=== PATIENT | female | born 1965 | race Caucasian/White ===

== ENCOUNTER 2023-05-31 07:32 | Emergency (ER) | payer BC, SELFPAY ==
[2023-05-31] VITALS (20 sets, daily range): BP systolic 134–164; BP diastolic 86–98; PULSE 86–109; RESP 16; TEMP 36.2; O2SAT 93–97; BMI 26.6
--- NOTE | 2023-05-31 07:59 | CRLHL7_ITS ---
For Patients: As a result of the Century Cures Act, medical imaging exams and procedure reports are released immediately into your electronic medical record. You may view this report before your referring provider. If you have questions, please contact your health care provider. INDICATION: Right lower quadrant pain. COMPARISON: 05/15/2020. TECHNIQUE: CT of the abdomen and pelvis with IV contrast. 81 cc of Isovue-370 administered intravenously. FINDINGS: Normal appendix. Colonic diverticulosis. No evidence of colonic diverticulitis. No bowel obstruction. Urinary bladder is incompletely distended. The uterus and adnexa appear unremarkable. Limited examination of the lung bases reveal no new focal or diffuse pulmonary opacities. No pleural effusion. The liver, spleen and pancreas appear unremarkable. Borderline distention of the gallbladder, new from previous. No intra or extrahepatic biliary ductal dilatation. No free intraperitoneal air or fluid. The kidneys enhance symmetrically without hydronephrosis. Minimal anterolisthesis of L4 on L5. Multilevel degenerative change. Vertebral body heights are well maintained. IMPRESSION: 1. Normal appendix. 2. Colonic diverticulosis but no evidence of diverticulitis. 3. Borderline distention of the gallbladder, new. Further evaluation could be obtained as clinically warranted with an ultrasound. Please note that all CT scans at this facility use dose modulation, iterative reconstruction, and/or weight-based dosing when appropriate to reduce radiation dose to as low as reasonably achievable. Dictated by Sy Warner MD @ 05/31/2023 10:59:59 AM (Electronically Signed)
--- NOTE | 2023-05-31 08:02 | ED_ITS ---
HPI - General Adult General Time Seen by Provider: 08:02 Date Seen: 05/31/23 Chief complaint: Abdominal Pain Stated complaint: Diverticulitis flare up/ETOH Time Seen by Provider: 05/31/23 07:53 Source: patient Mode of arrival: ambulatory Limitations: no limitations History of Present Illness HPI narrative: Patient is a 57-year-old female with his history of diverticulitis and history of alcoholism, she went on a 4 day alcohol binge recently and has persistent abdominal pain in the right side. She still has her gallbladder, she denies any marked fevers rigors or chills, denies dysuria. Patient has been through a in the past and plans and pursuing that again. She has had some nausea. She has had no blood in her stool or blood in her vomit. She has had no chest pain or breathing problem. Related Data Previous Rx's Medication Instructions Recorded hydrocodone 7.5 mg-acetaminophen 1 tab PO Q8H PRN pain #10 tabs 05/31/23 325 mg tablet Allergies Allergy/AdvReac Type Severity Reaction Status Date / Time No Known Drug Allergies Allergy Verified 05/31/23 08:26 Review of Systems Status of ROS: Reports: 6 or more systems reviewed and unremarkable except as noted in History and below [facility] Medical History H/O ETOH abuse ?F10.11 - Alcohol abuse, in remission (ICD-10) Pancreatitis ?K85.90 - Acute pancreatitis without necrosis or infection, unspecified (ICD- 10) Diverticulitis ?K57.92 - Diverticulitis of intestine, part unspecified, without perforation or abscess without bleeding (ICD-10) Social History Smoking Status: Never smoker Do you use any of these nicotine containing products: None How often do you have a drink containing alcohol: monthly or less AUDIT-C Alcohol total score: 1 Non-prescribed substance use: marijuana (any form) Exam Narrative: Exam Narrative: Objective: Vital signs show elevated blood pressure, afebrile In general no apparent distress HEENT unremarkable Chest clear Heart regular Abdomen benign soft bowel sounds normoactive, patient has some mild right-sided abdominal tenderness to palpation no palpable mass. No rebound Extremities are no edema Neurologic nonfocal Const: Vital Signs, click to edit/add: Vital Signs - 24 hr 05/31/23 07:35 05/31/23 07:59 05/31/23 08:43 Temperature 97.2 F L Pulse Rate 86 Pulse Rate [Right Pulse Oximeter] 109 H Respiratory Rate 16 Blood Pressure Blood Pressure [Ri ght Upper Arm] 164/96 H Pulse Oximetry 96 96 95 Oxygen Delivery Me thod Room Air Room Air 05/31/23 08:45 05/31/23 09:00 05/31/23 09:01 Temperature Pulse Rate 88 92 89 Pulse Rate [Right Pulse Oximeter] Respiratory Rate Blood Pressure 138/90 H Blood Pressure [Ri ght Upper Arm] Pulse Oximetry 93 93 94 Oxygen Delivery Me thod 05/31/23 09:15 05/31/23 09:30 05/31/23 09:32 Temperature Pulse Rate 93 88 91 Pulse Rate [Right Pulse Oximeter] Respiratory Rate Blood Pressure 144/93 H Blood Pressure [Ri ght Upper Arm] Pulse Oximetry 93 94 94 Oxygen Delivery Me thod 05/31/23 09:33 05/31/23 09:45 05/31/23 10:00 Temperature Pulse Rate 88 91 93 Pulse Rate [Right Pulse Oximeter] Respiratory Rate Blood Pressure Blood Pressure [Ri ght Upper Arm] Pulse Oximetry 95 96 95 Oxygen Delivery Me thod Room Air 05/31/23 10:02 05/31/23 10:15 05/31/23 10:30 Temperature Pulse Rate 90 95 97 Pulse Rate [Right Pulse Oximeter] Respiratory Rate Blood Pressure 141/91 H Blood Pressure [Ri ght Upper Arm] Pulse Oximetry 96 95 94 Oxygen Delivery Me thod 05/31/23 10:32 05/31/23 10:45 05/31/23 11:00 Temperature Pulse Rate 97 92 99 Pulse Rate [Right Pulse Oximeter] Respiratory Rate Blood Pressure 134/86 Blood Pressure [Ri ght Upper Arm] Pulse Oximetry 93 95 96 Oxygen Delivery Me thod 05/31/23 11:01 05/31/23 11:15 Temperature Pulse Rate 98 93 Pulse Rate [Right Pulse Oximeter] Respiratory Rate Blood Pressure 152/98 H Blood Pressure [Ri ght Upper Arm] Pulse Oximetry 95 97 Oxygen Delivery Me thod Course Vital Signs Vital signs: Initial Vital Signs Temperature 97.2 F L 05/31/23 07:35 Temperature Source Temporal Artery Scan 05/31/23 07:35 Pulse Rate 109 H 05/31/23 07:35 Respiratory Rate 16 05/31/23 07:35 Blood Pressure 164/96 H 05/31/23 07:35 Blood Pressure Mean 118 H 05/31/23 07:35 Blood Pressure Position Sitting 05/31/23 07:35 Pulse Oximetry 96 05/31/23 07:35 Oxygen Delivery Method Room Air 05/31/23 07:35 Vital Signs Temperature 97.2 F L 05/31/23 07:35 Pulse Rate 109 H 05/31/23 07:35 Respiratory Rate 16 05/31/23 07:35 Blood Pressure 164/96 H 05/31/23 07:35 Pulse Oximetry 96 05/31/23 07:35 Oxygen Delivery Method Room Air 05/31/23 07:35 Temperature 97.2 F L 05/31/23 07:35 Pulse Rate 93 05/31/23 11:15 Respiratory Rate 16 05/31/23 07:35 Blood Pressure 152/98 H 05/31/23 11:01 Pulse Oximetry 97 05/31/23 11:15 Oxygen Delivery Method Room Air 05/31/23 09:33 Medical Decision Making MDM Narrative Medical decision making narrative: [age] year white female with the recent history of alcohol binge as well as history of diverticulitis with right sided abdominal pain, rule out diverticulitis will rule out colitis, rule out intra-abdominal infection patient will get CT scan with IV contrast, labs, fluids, pain medicine. Patient will be followed in the ER for period of time disposition pending findings above. Patient feels her pain is gone from a 7 down to a 5, her blood counts and CT scan look largely unremarkable. She does have just mildly distended gallb ladder, but no obvious stones noted. She has a negative CRP. I think at this point to be reasonable to try and treat her with pain medication will give her [place] for home as needed, light activity, low-fat diet, recheck with regular doctor in the next couple of days, she has problems or concerns sooner should return to the ED for ultrasound of right upper quadrant and reassessment. She was comfortable this will follow up as directed. Lab Data Labs: Lab Results 05/31/23 Range/Units 08:15 WBC 9.91 (4.50-11.00) K/uL RBC 5.05 (4.00-5.20) m/uL Hgb 14.9 (12.0-16.0) gm/dL Hct 43.5 (33.0-51.0) % MCV 86 (80-100) fL MCH 30 (26-34) pg MCHC 34 (32-36) gm/dL RDW Coeff of [place] 12.0 (11.5-15.5) % Plt Count 372 (140-440) K/uL Neut % (Auto) 74.5 H (42.0-72.0) % Lymph % (Auto) 16.5 L (20-44) % [place] % (Auto) 7.7 (0.0-11.0) % Eos % (Auto) 0.6 (0.0-7.0) % Baso % (Auto) 0.5 (0.0-3.0) % Neut # (Auto) 7.40 H (1.7-7.0) K/uL Lymph # (Auto) 1.60 (0.90-2.90) K/uL [place] # (Auto) 0.80 (0.00-0.90) K/UL Eos # (Auto) 0.06 (0.00-0.50) K/uL Baso # (Auto) 0.05 (0.00-0.30) K/uL Abs Immat Gran (auto) 0.02 (0.00-0.30) K/uL Imm/Tot Granulo (auto) 0.2 % Sodium 138 (135-149) mmol/L Potassium 4.1 (3.6-5.1) mmol/L Chloride 101 (96-114) mmol/L Carbon Dioxide 25 (20-32) mmol/L Anion Gap 12 (7-15) mEq/L BUN 16 (7-30) mg/dL Creatinine 0.7 (0.5-1.5) mg/dL Estimated Creat Clear 81.01 Estimated GFR 100 ml/min Glucose 93 (60-115) mg/dL Lactate 3.2 H (0.5-1.9) mmol/L Calcium 9.3 (8.4-10.6) mg/dL C-Reactive Protein < 0.5 L (0.5-1.0) mg/dL Amylase 51 (18-89) U/L Discharge Plan Discharge Clinical Impression: Abdominal pain Patient Disposition: Home w/ Parent or Adult Condition: Improved Additional Instructions: Light diet, low-fat diet, pain medicine as needed, follow up with regular doctor next couple of days. Consider an ultrasound of your gallbladder if it continues to hurt. Return to the ED at any time here concerning questions. Activity Level: Light activity Discharge Diet: Low Fat/Low Cholesterol Prescriptions: New hydrocodone-acetaminophen 7.5-325 mg tablet 1 tab PO Q8H PRN (Reason: pain) Qty: 10 0RF Stand Alone Forms: [employer] Info Instructions
[2023-05-31 08:25] LABS: Basophils Absolute Auto 0.05 K/uL (0.00-0.30); Basophils Percent Auto 0.5 % (0.0-3.0); Eosinophils Absolute Auto 0.06 K/uL (0.00-0.50); Eosinophils Percent Auto 0.6 % (0.0-7.0); Hematocrit 43.5 % (33.0-51.0); Hemoglobin* 14.9 gm/dL (12.0-16.0); Immature Granulocytes Abs Auto 0.02 K/uL (0.00-0.30); Immature Granulocytes Pct Auto 0.2 %; Lymphocytes Percent Auto 16.5 % (20-44); Mean Corpuscular HGB Conc 34 gm/dL (32-36); Mean Corpuscular Hemoglobin 30 pg (26-34); Mean Corpuscular Volume 86 fL (80-100); Monocytes Percent Auto 7.7 % (0.0-11.0); Neutrophils Percent Auto 74.5 % (42.0-72.0); Platelet Count* 372 K/uL (140-440); Red Blood Count 5.05 m/uL (4.00-5.20); White Blood Count* 9.91 K/uL (4.50-11.00)
[2023-05-31 08:27] LABS: Lactate* 3.2 mmol/L (0.5-1.9)
[2023-05-31 08:28] LABS: Slide Review Reflex No
[2023-05-31] MEDS: KETOROLAC 15 MG/ML inj IVP (08:32)
[2023-05-31] MEDS: 0.9 % SODIUM CHLORIDE 1000 ml 1,000 ML 6000 ML IV (08:33)
[2023-05-31] MEDS: MORPHINE 4 MG/ML INJ 2 MG IVP (08:33)
[2023-05-31] MEDS: ONDANSETRON 2 MG/ML inj 4 MG IVP (08:42)
[2023-05-31 08:45] LABS: Chloride* 101 mmol/L (96-114); Sodium* 138 mmol/L (135-149)
[2023-05-31 08:46] LABS: Potassium* 4.1 mmol/L (3.6-5.1)
[2023-05-31 08:48] LABS: Amylase* 51 U/L (18-89); Creatinine* 0.7 mg/dL (0.5-1.5); Est. Creatinine Clearance* 81.01; Estimated Glomerular Filt Rate 100 ml/min
[2023-05-31 08:49] LABS: Anion Gap 12 mEq/L (7-15); Blood Urea Nitrogen* 16 mg/dL (7-30); Calcium* 9.3 mg/dL (8.4-10.6); Carbon Dioxide* 25 mmol/L (20-32); Glucose* 93 mg/dL (60-115)
[2023-05-31 09:00] LABS: C Reactive Protein* < 0.5 mg/dL (0.5-1.0)
[2023-05-31] MEDS: HYDROCODONE/ACETAMIN 7.5-325 TABLET 1 TAB PO (11:27)
== END 2023-05-31 11:36 | disposition home or self-care (01) ==
PROVIDERS: Emergency Provider Family Medicine
DX: R10.9 Unspecified abdominal pain (principal)
CPT/HCPCS: 36415; 74177; 80048; 82150; 83605; 85025; 86140; 94761; 96361; 96374; 96375; 99284; 99285; A9270; J1885; J2270; J2405; J7030; Q9967